=== PATIENT | female | born 1965 | race Caucasian/White ===

== ENCOUNTER → 2020-05-01 17:26 | Outpatient (BNVA) | payer BC, SELFPAY | PROVIDERS: Visit Provider Nurse Practitioner Family | DX: J06.9 Acute upper respiratory infection, unspecified (principal); Z20.828 Contact with and (suspected) exposure to other viral communicable diseases | CPT/HCPCS: 87635 ==

== ENCOUNTER → 2020-05-06 15:58 | Outpatient (BNVA) | payer BC, SELFPAY | PROVIDERS: Visit Provider Nurse Practitioner Family | DX: Z20.828 Contact with and (suspected) exposure to other viral communicable diseases (principal); J06.9 Acute upper respiratory infection, unspecified | CPT/HCPCS: 87635 ==

== ENCOUNTER → 2021-12-31 15:59 | Outpatient (BNVA) | payer BC, SELFPAY | PROVIDERS: Visit Provider Emergency Medicine | DX: R39.9 Unspecified symptoms and signs involving the genitourinary system (principal); Z11.3 Encounter for screening for infections with a predominantly sexual mode of transmission; N30.01 Acute cystitis with hematuria | CPT/HCPCS: 81000; 87491; 87591; 87661 ==

== ENCOUNTER → 2023-10-29 09:09 | Outpatient (BNVA) | payer BC, SELFPAY | PROVIDERS: PCP Nurse Practitioner Family; Visit Provider Emergency Medicine | DX: R42 Dizziness and giddiness (principal) | CPT/HCPCS: 93005 ==

== ENCOUNTER 2023-11-09 18:42 | Emergency (ER) | payer BC, SELFPAY ==
[2023-11-09 19:07] VITALS: BP 130/83; PULSE 52; RESP 15; TEMP 36.5; O2SAT 98
--- NOTE | 2023-11-09 19:31 | ED_ITS ---
HPI - Headache General: Chief Complaint: Headache Stated Complaint: Headace Time Seen by Provider: 11/09/23 19:01 Source: patient Mode of arrival: ambulatory Limitations: no limitations History of Present Illness: Patient is a 58-year-old female who presents to the emergency department complaining of bumps on head for the past couple days. Patient notes these areas are tender to the touch, and one of them was able to express pus earlier today. She is still having pain at that spot. States she has not changed any shampoos recently. No other symptoms noted, including no neurological deficits or visual changes. Pain is reported to be very superficial and worsened with palpation. She has never had this issue in the past. MD elicited complaint: other (Bumps on head) Onset (ago): day(s) Location: occipital Severity: mild Quality & Timing: sharp Exacerbating factors: other (Palpation) Associated symptoms: Reports no associated symptoms; Deny chest pain, fever(s), lightheadedness, nausea, rash or vomiting Review of Systems General: Reports: 10 or more systems reviewed and unremarkable except in HPI and below Const: Denies: fever(s), chills or fatigue Eyes: Denies: change in vision ENMT: Denies: throat pain, ear or mastoid pain or nasal discharge Card: Denies: chest pain, palpitations, swelling of feet/ankles or lightheadedness Resp: Denies: dyspnea, productive cough or wheezing GI: Denies: abdominal pain, nausea, vomiting, diarrhea or constipation : Denies: flank pain, difficulty voiding, dysuria or urinary frequency Musc: Denies: neck pain, back pain or joint pain Skin/Breast: Denies: rash Neuro: Reports: headache(s) (Bumps on head); Denies: numbness in extremities or weakness in extremities PFSH ED PFSH: Social History Smoking and tobacco/nicotine status: never used tobacco/nicotine Alcohol intake: never Substance/Drug Use: never Physical Exam Const: COMMON NORMALS: no acute distress, patient oriented x3 and no limitations GENERAL APPEARANCE: cooperative, comfortable and well developed ORIENTATION/CONSCIOUSNESS: Yes awake, Yes oriented to person, Yes oriented to place and Yes oriented to time HENMT: COMMON NORMALS: normocephalic, atraumatic and hearing grossly normal bilaterally HEAD & SCALP: normocephalic and atraumatic OTHER: There are 2 separate areas of induration, 1 area does have central purulence and the other appears to have been recently probed. Tender to palpation and small area of erythema noted. These do appear to be consistent with a folliculitis. Eye: COMMON NORMALS: Equal, round and reactive pupils present, EOMs intact bilaterally and conjunctivae normal CONJUNCTIVA: Yes conjunctivae normal PUPIL: Yes Equal, round and reactive pupils present Neck/C-Spine: COMMON NORMALS: full ROM, supple and no JVD Resp: COMMON NORMALS: normal respiratory effort, No retractions, No use of accessory muscles and clear to auscultation bilaterally AUSCULTATION: clear to auscultation bilaterally Cardio: COMMON NORMALS: no JVD, regular rate, regular rhythm, No clicks present (Cardio), No murmurs present (Cardio) and No rub (Cardio) RATE: regular rate RHYTHM: regular rhythm Extremity: COMMON NORMALS: normal to inspection, full ROM and capillary refill normal Neuro: COMMON NORMALS: patient oriented x3, CN's II-XII intact bilaterally, moves all extremities, no focal motor deficits and no sensory deficits noted SENSORIUM/ORIENTATION: Yes oriented to person, Yes oriented to place and Yes oriented to time Psych: COMMON NORMALS: mental status grossly normal and Normal thought process present THOUGHT PROCESS: Normal thought process present Skin: COMMON NORMALS: no rashes or lesions noted GENERAL SKIN EXAM: no rashes or lesions noted Course Vital Signs: Vital signs: Vital Signs Temperature 97.7 F 11/09/23 19:07 Pulse Rate 52 L 11/09/23 19:07 Respiratory Rate 15 11/09/23 19:07 Blood Pressure 130/83 11/09/23 19:07 Pulse Oximetry 98 11/09/23 19:07 Oxygen Delivery Me thod Room Air 11/09/23 19:07 MDM - Headache Medical Decision Making Patient presented with clinical signs and symptoms of folliculitis, 2 separate areas to her occipital scalp. Her neurological exam was completely intact and she had no other systemic signs of illness or symptoms to report. One of the lesions was previously popped per the patient, and the other does appear to have central purulence. This was attempted to be drained however the pain was too unbearable to patient she states she would rather have her boyfriend tried at home after hot shower. She does request something to put on it, will give triam cinolone as needed. She is instructed to take Tylenol and ibuprofen and return with any new concerning symptoms such as any neurological deficits or visual changes. No radiology studies performed this visit Discharge Plan Discharge Patient Disposition: Home Clinical Impression: Folliculitis Condition: Stable Prescriptions: New triamcinolone acetonide 0.5 % ointment 1 applic topical BID Qty: 15 0RF No Action estradiol 2 mg tablet 6 mg PO DAILY Discharge Orders: Discharge ED (Routine); Ordered 11/09/23 Ordered By: Naveen Gaitan Referrals: Lorena Hector [Primary Care Provider] - Discharge Diet: Usual diet Discharge Activity: Increase activity as tolerated Patient Instructions: Folliculitis (ED), Cold Compress or Soak (ED) Activity Restrictions/Additional Instructions: Tylenol and ibuprofen as discussed. You may apply the topical steroid. If you do try to pop the lesion, do so after taking a hot shower. Monitor for any new or worsening symptoms, including any neurological complaints, and return for reevaluation. Coding Level of Care Code ED Pediatric Allergist for [facility]
[2023-11-09 20:15] VITALS: BP 130/83; PULSE 52; RESP 15; TEMP 36.5; O2SAT 98
== END 2023-11-09 20:16 | disposition home or self-care (01) ==
PROVIDERS: Emergency Provider Physician Assistant; PCP Nurse Practitioner Family
DX: L73.9 Follicular disorder, unspecified (principal)
CPT/HCPCS: 99281

== ENCOUNTER 2024-09-08 15:34 | Outpatient (CLI) | payer BC, SELFPAY ==
--- NOTE | 2024-09-08 15:37 | US_ITS ---
WS: [id number] THYROID ULTRASOUND HISTORY: Hypothyroidism COMPARISON: None available. Right lobe: 1.3 cm x 1.7 cm x 3.8 cm (w x ap x l). Volume: 4.2 cm3. Heterogeneous top normal size thyroid. No discrete nodules are identified. The entire gland is slightly lobulated and heterogeneous with only minimal increased vascularity. No echogenic foci. Left lobe: 1.0 cm x 1.5 cm x 3.1 cm (w x ap x l). Volume: 2.1 cm3. Small caliber gland which is nodular. Mild increased vascularity. No echogenic foci. Isthmus: 0.3 cm. US/US thyroid 29294 IMPRESSION: TI-RADS 2; no suspicious nodules. Heterogeneous gland.
== END 2024-09-08 15:35 | disposition home or self-care (01) ==
LOC: RAD 15:36
PROVIDERS: PCP Nurse Practitioner Family
DX: E03.9 Hypothyroidism, unspecified (principal); E04.1 Nontoxic single thyroid nodule; R93.89 Abnormal findings on diagnostic imaging of other specified body structures
CPT/HCPCS: 76536